=== PATIENT | female | born 1985 | race Hispanic/Latino ===

== ENCOUNTER → 2018-07-09 | Outpatient (CLI) | payer BC ==
[~2018-07-09] VITALS: Ht 7.6 cm; Wt 161.5 kg
--- NOTE | 2018-07-09 15:30 | NUR ---
Bariatric Nutrition Counseling: Visit 04/26: Pt seeking nutritional guidance for bariatric surgery. Pt seeking bariatric surgery to assist with wt loss as she has been overweight all her life and has a history of multiple failed attempts to lose wt. Pt reports wt loss surgery has been suggested by Dr Levy as it will benefit her to reduce pain to her lower back as she has herniated disk. Pt lives with parents and mother usually prepares pt's meals. Most of the grocery shopping done by pt's mother and pt states mother is her support structure for post procedure. RD reviewed with pt her 24 hour recall and together developed nutrition plan to incorporate healthy nutrition throughout the day. 24 hour recall reflects long periods and fasting between meals which RD explained to pt that it does no good to the body. Pt has verbalized understanding. 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 RD has encouraged pt to drink protein shake as a meal replacement the days she does not want to eat her work food. Pt has verbalize agreement. RD has reviewed major food groups with pt and tips on how to balance meals have been provided. During counseling, pt was instructed to creat 1 meal for breakfast, lunch and dinner using all food groups for a well balanced meals. Pt has learned how to make simple, balanced meals. Pt reports physical activity of walking 3x/wk around her neighborhood. RD has encouraged pt to continue with workout regimen however has highly advised pt to increase intensity to incorporate moderate cardio exercise. Pt has verbalized understanding. Pt also reports concerns with soda as she drinks 1-20oz soda on the daily. RD has encouraged pt to start by reducing soda intake to half of her usual intake to every other day in preparation to surgery. Pt states she will begin reducing soda intake to every other day. Pt has set new goals to work on in the upcoming month to review with RD: 1) eat healthier by incorporation vegetables to her diet. 2) change eating habits and routine-stop skipping meals. 3) increase water intake and reduce soda intake. Addendum: 07/10/18 at [address] RD Amended: Links added.
== END | disposition home or self-care (01) ==
LOC: DTH 15:14
PROVIDERS: ATTEND Surgery
DX: E11.9 Type 2 diabetes mellitus without complications (principal); E66.09 Other obesity due to excess calories
CPT/HCPCS: 97802

== ENCOUNTER → 2018-08-07 | Outpatient (CLI) | payer BC ==
--- NOTE | 2018-08-07 16:59 | NUR ---
Bariatric Nutrition Consult: Visit 2: Pt with met goals. Pt reports decreased soda intake to only 2diet cokes in the past month compared to a daily soda. Vegetable intake has increased when pt is at home. Pt unsure how to incorporate more vegetables when she is on the run doing her usual errands after work. Pt reports she has not started physical activity yet and is surprised at home much physical and energetic change she has seen with only making dietary changes. Pt has also removed flour tortilla from her daily intake and has cut back bread to only once a week. RD has reviewed "20 ways to enjoy more fruits and vegetables" with pt giving her multiple examples on how to incorporate vegetables to her daily diet. RD also provided with every day daily tips on how to incorporate vegetables such as grilling fruits and vegetables at family cookouts. Pt has verbalized understanding and will begin making changes. Pt reports she will begin working on sleeping early to continue bettering her quality of life. Pt has set 3 goals to work on in the upcoming month and review with RD at f/u visit. 1) eat more vegetables 2) drink more water 3) sleep earlier. Pt and RD will also review benefits of exercise in upcoming visit to help pt incorporate physical activity. Addendum: 08/07/18 at [address] RD Amended: Links added.
== END | disposition home or self-care (01) ==
LOC: DTH 14:28
PROVIDERS: ATTEND Surgery
DX: E66.9 Obesity, unspecified (principal); E11.9 Type 2 diabetes mellitus without complications
CPT/HCPCS: 97803

== ENCOUNTER → 2018-09-15 | Outpatient (CLI) | payer BC ==
--- NOTE | 2018-09-15 16:45 | NUR ---
Bariatric Nutrition Consult Visit 3: Pt with difficulty meeting certain goals d/t busyness at work. Pt describes stressful time at work causing fatigue and no desire to cook at home for dinner and would simply sleep in the evening after work. Pt does continue to drink water more often and only occasionally drinks coke zero (i.e. 1-2 times per month). 24 Hour Recall reveals only water with meals and no sugar-sweetened beverages. This visit, RD discussed importance of exercise with patient. Patient reports to have started Gym membership and is enthusiastic at opportunity to start exercise classes and explore facility. Patient also expresses desire to walk more. Pt has set 3 goals to work on in the upcoming month and review with RD at f/u visit. 1) Meal planning and prep to encourage healthier snacking and meals 2) Eating more vegetables with meals 3) Working out and walking more. Pt and RD to discuss outcome of incorporating exercises in addition to reviewing goals in f/u visit. Addendum: 09/15/18 at [address] RD Amended: Links added.
== END | disposition home or self-care (01) ==
LOC: DTH 15:33
PROVIDERS: ATTEND Surgery
DX: E11.9 Type 2 diabetes mellitus without complications (principal); E66.09 Other obesity due to excess calories
CPT/HCPCS: 97803

== ENCOUNTER → 2018-10-15 | Outpatient (CLI) | payer BC ==
--- NOTE | 2018-10-15 17:00 | NUR ---
Bariatric nutrition consult: Visit 4: Pt with 2lb wt loss since last month. Pt has met goals of continued exercise however expresses the want to increase frequency as she has struggled to get herself in the gym more often this month due to schedule complications at work. Pt also met goals of increasing vegetable intake. She has been working on vegetable intake since starting the bariatric program. Pt reports she has made a lot of progress as she did not like vegetables before. Pt will continue to work on healthier eating and healthier meal prepping. RD has reviewed Healthy Eating For Healthy Weight with pt. Tips and recommendations made. Pt with multiple questions and examples of healthy eating. All concerns reviewed with pt. Pt has set 3 new goals to work on in the upcoming month and review with RD at F/U visit: 1) stop drinking coke (soda) 2) go to gym x5/wk 3) more vegetables. Addendum: 10/16/18 at [address] RD Amended: Links added.
== END | disposition home or self-care (01) ==
LOC: DTH 16:25
PROVIDERS: ATTEND Nurse Practitioner Family
DX: E11.9 Type 2 diabetes mellitus without complications (principal); E66.9 Obesity, unspecified
CPT/HCPCS: 97803

== ENCOUNTER → 2018-11-11 | Outpatient (CLI) | payer BC ==
[~2018-11-11] MED LIST: AMLO5TAB9 PO; HYDR12.530 PO; LEVO50TA11 PO; LOSA100T58 PO
--- NOTE | 2018-11-11 16:09 | NUR ---
Bariatric Nutrition Consult Visit 5: Pt with 3lb wt loss since last month. Pt has met goal of eliminating coke consumption. Pt has also increased vegetable intake by including grilled vegetables with meals when father cooks out. Pt was able to increase going to the gym, however was inconsistent the last week as various responsibilities arose. RD discussed alternatives for exercise when one does not have time to go to the gym. Pt is also interested in water aerobics and states she is looking into starting with a friend. RD also reviewed "10 Tips to Incorporate more fruits and vegetables" handout with Pt. Pt was engaged and appreciated the handout. Pt has set 3 goals to work on in the upcoming month and review with RD at F/U visit: 1) Increase water intake 2) go to the gym x5/wk 3) Prepare snacks to eat while at work. RD provided contact information for questions and concerns that arise prior to next visit. Addendum: 11/11/18 at [address] RD Amended: Links added.
== END | disposition home or self-care (01) ==
LOC: DTH 14:29
PROVIDERS: ATTEND Surgery
DX: E66.8 Other obesity (principal); E11.9 Type 2 diabetes mellitus without complications
CPT/HCPCS: 97803

== ENCOUNTER 2018-11-13 06:25 | Day surgery (SDC) | payer BC ==
[~2018-11-13] VITALS: Ht 157.5 cm; Wt 153.3 kg
[2018-11-13 07:12] LABS: CREATININE 0.5 mg/dL (0.5-1.5); POTASSIUM 3.8 mmol/L (3.5-5.1)
[2018-11-13 07:13] VITALS: BP 143/78
[2018-11-13 07:15] LABS: BASOPHILS % (AUTO) 0.3 % (0.0-5.0); EOSINOPHILS % (AUTO) 3.2 % (0.0-8.0); HEMATOCRIT 41.9 % (36-48); LYMPHOCYTES % (AUTO) 31.6 % (21.0-51.0); MEAN CORPUSCULAR HEMOGLOBIN 29.5 pg (27.0-33.0); MEAN CORPUSCULAR HGB CONC 33.9 g/dL (32.0-36.0); MEAN CORPUSCULAR VOLUME 87.1 fL (79-99); MONOCYTES % (AUTO) 4.7 % (3.0-13.0); NEUTROPHILS % (AUTO) 60.2 % (40.0-77.0); NUCLEATED RED BLOOD CELLS 0.2 % (0.0-0.19); PLATELET COUNT (AUTO) 204 K/uL (130-400); RED BLOOD CELL COUNT(AUTO) 4.82 MIL/uL (4.00-5.50); RED CELL DISTRIBUTION WIDTH 13.4 % (11.0-15.5); WHITE BLOOD COUNT (AUTO) 6.5 K/uL (4.8-10.8)
[2018-11-13] MEDS ORDERED: HYDR12.530 PO (07:30)
[2018-11-13] MEDS ORDERED: LOSA100T58 PO (07:30)
[2018-11-13] MEDS ORDERED: LEVO50TA11 PO (07:30)
[2018-11-13] MEDS ORDERED: AMLO5TAB9 PO (07:30)
[2018-11-13] MEDS ORDERED: SODIUM CHLORIDE 0.9% 1000ML 1,000 ML IV ONE (07:49)
[2018-11-13] MEDS ORDERED: PROPOFOL 10 MG/ML 20ML VIAL IV ONE (09:19)
[2018-11-13 09:31] VITALS: BP 139/76
[2018-11-13 09:36] VITALS: BP 120/60
[2018-11-13 09:40] VITALS: BP 127/72
[2018-11-13 09:45] VITALS: BP 123/72
== END 2018-11-13 09:55 | disposition home or self-care (01) ==
LOC: DAH 06:25 → ENDO 06:25
PROVIDERS: ATTEND Surgery
DX: K44.9 Diaphragmatic hernia without obstruction or gangrene (principal); E66.01 Morbid (severe) obesity due to excess calories; K21.9 Gastro-esophageal reflux disease without esophagitis; I10 Essential (primary) hypertension; Z68.44 Body mass index [BMI] 60.0-69.9, adult; Z79.899 Other long term (current) drug therapy; Z83.3 Family history of diabetes mellitus; Z82.49 Family history of ischemic heart disease and other diseases of the circulatory system
CPT/HCPCS: 36415; 43235; 80048; 84703; 85025; A4606; J2704; J7030

== ENCOUNTER → 2019-01-29 | Outpatient (CLI) | payer BC ==
--- NOTE | 2019-01-29 15:17 | NUR ---
BARIATRIC PRE-OP DIET COUNSELING Pt visit for Pre-Op Diet education. RD reviewed Bariatric meal planning and Pre- and Post-Op Bariatric phases with Pt. Pt to Initiate Clear Liquid diet one week prior to procedure. Pt with multiple questions. RD answered all of Pt questions. RD provided contact information for Pt to contact RD as nutrition concerns arise. RD to follow up with Pt post procedure.
== END | disposition home or self-care (01) ==
LOC: DTH 13:23
PROVIDERS: ATTEND Surgery
DX: E66.9 Obesity, unspecified (principal); E11.9 Type 2 diabetes mellitus without complications
CPT/HCPCS: 97803

== ENCOUNTER 2019-02-03 15:00 | Inpatient (IN) | payer OTHER, SELFPAY ==
[~2019-02-03] VITALS: Ht 162.6 cm; Wt 156.7 kg
[2019-02-03 15:01] VITALS: BP 155/74
[2019-02-03 15:08] LABS: BASOPHILS % (AUTO) 0.2 % (0.0-5.0); EOSINOPHILS % (AUTO) 1.7 % (0.0-8.0); MEAN CORPUSCULAR HEMOGLOBIN 29.9 pg (27.0-33.0); MEAN CORPUSCULAR HGB CONC 34.5 g/dL (32.0-36.0); MEAN CORPUSCULAR VOLUME 86.5 fL (79-99); MONOCYTES % (AUTO) 4.5 % (3.0-13.0); NEUTROPHILS % (AUTO) 64.6 % (40.0-77.0); PLATELET COUNT (AUTO) 213 K/uL (130-400); RED BLOOD CELL COUNT(AUTO) 4.51 MIL/uL (4.00-5.50); RED CELL DISTRIBUTION WIDTH 13.3 % (11.0-15.5); WHITE BLOOD COUNT (AUTO) 6.6 K/uL (4.8-10.8)
[2019-02-03 15:27] LABS: CREATININE 0.5 mg/dL (0.5-1.5); POTASSIUM 3.3 mmol/L (3.5-5.1)
--- NOTE | 2019-02-05 11:13 | NUR ---
LOW POTASSIUM LEVEL REPORTED TO GERHARD DYSON MA. ORDERS TO REPEAT POTASSIUM DOS.
[2019-02-08] VITALS (25 sets, daily range): BP systolic 133–197; BP diastolic 64–113
[2019-02-08] MEDS ORDERED: BUPIVACAINE/PF 0.5% 30ML VIAL ONE (08:33)
[2019-02-08] MEDS ORDERED: LACTATED RINGERS 1000ML 1,000 ML IV ONE (08:34)
[2019-02-08] MEDS ORDERED: ONDANSETRON HCL 4 MG/2 ML VIAL ONE ×2 (08:48→10:50)
[2019-02-08] MEDS ORDERED: LIDOCAINE PF 2% 5ML ABBOJECT ONE ×2 (08:48→08:51)
[2019-02-08] MEDS ORDERED: PROPOFOL 10 MG/ML 20ML VIAL IV ONE (08:48)
[2019-02-08] MEDS ORDERED: DEXAMETHASONE SOD PHOSPHATE 10MG/ML 1ML VIAL ONE (08:48)
[2019-02-08] MEDS ORDERED: GLYCOPYRROLATE 1 MG/5 ML SYRINGE ONE (08:48)
[2019-02-08] MEDS ORDERED: NEOSTIGMINE 5MG/5ML SYR IV ONE (08:48)
[2019-02-08] MEDS ORDERED: SUCCINYLCHOLINE 200MG/10ML SYR ONE (08:48)
[2019-02-08] MEDS ORDERED: MIDAZOLAM HCL 1 MG/ML 2ML VIAL ONE (08:49)
[2019-02-08] MEDS ORDERED: FENTANYL CITRATE PF 50 MCG/1 ML 2ML VIAL ONE ×2 (08:49→10:15)
[2019-02-08] MEDS ORDERED: ROCURONIUM 10MG/1ML SYR 10 MG/ML ML ONE (08:49)
[2019-02-08] MEDS: CEFAZOLIN SODIUM 1 GM VIAL ONE ×2 (09:07→09:20)
[2019-02-08] MEDS ORDERED: MEPERIDINE-PF 25 MG/ML SYG ONE ×3 (10:22→10:55)
[2019-02-08] MEDS ORDERED: ACETAMINOPHEN-CODEINE ELIXIR 5 ML UDCUP PO PRN (10:30)
[2019-02-08] MEDS: CEFAZOLIN SODIUM 1 GM VIAL IVP SCH ×2 (10:30→19:01)
[2019-02-08] MEDS ORDERED: ONDANSETRON HCL 4 MG/2 ML VIAL IVP PRN (10:30)
[2019-02-08] MEDS ORDERED: HYDRALAZINE HCL 20 MG/ML VIAL ONE (11:05)
[2019-02-08] MEDS: LACTATED RINGERS 1000ML 1,000 ML IV SCH ×3 (11:58→21:26)
[2019-02-08] MEDS: MORPHINE SULFATE 5 MG/ML VIAL IVP PRN ×3 (11:58→22:44)
[2019-02-08] MEDS: KETOROLAC TROMETHAMINE 30MG/ML IV SCH ×2 (16:05→21:27)
[2019-02-08] MEDS: FAMOTIDINE/PF 20 MG/2 ML VIAL IV SCH (21:28)
[2019-02-08] MEDS: ENOXAPARIN SODIUM 30 MG/0.3 ML SQ SCH (21:28)
[2019-02-09] MEDS: CEFAZOLIN SODIUM 1 GM VIAL IVP SCH ×3 (02:45→18:30)
[2019-02-09 03:02] VITALS: BP 129/68
[2019-02-09] MEDS: KETOROLAC TROMETHAMINE 30MG/ML IV SCH ×3 (03:20→15:15)
--- NOTE | 2019-02-09 03:20 | NUR ---
RECEIVED REPORT RECEIVED FROM AMAURY SU. TOOK OVER CARE AT THIS TIME. PT IS RESTING WELL. NO DISTRESS NOTED. KEPT COMFORTABLE.
[2019-02-09] MEDS: LACTATED RINGERS 1000ML 1,000 ML IV SCH ×3 (05:18→16:41)
[2019-02-09 05:34] LABS: BASOPHILS % (AUTO) 0.4 % (0.0-5.0); EOSINOPHILS % (AUTO) 0.7 % (0.0-8.0); HEMATOCRIT 37.1 % (36-48); LYMPHOCYTES % (AUTO) 26.1 % (21.0-51.0); MEAN CORPUSCULAR HEMOGLOBIN 30.3 pg (27.0-33.0); MEAN CORPUSCULAR HGB CONC 34.7 g/dL (32.0-36.0); MEAN CORPUSCULAR VOLUME 87.1 fL (79-99); MONOCYTES % (AUTO) 6.2 % (3.0-13.0); NEUTROPHILS % (AUTO) 66.6 % (40.0-77.0); PLATELET COUNT (AUTO) 199 K/uL (130-400); RED BLOOD CELL COUNT(AUTO) 4.26 MIL/uL (4.00-5.50); RED CELL DISTRIBUTION WIDTH 13.5 % (11.0-15.5); WHITE BLOOD COUNT (AUTO) 7.7 K/uL (4.8-10.8)
[2019-02-09 05:47] LABS: CREATININE 0.6 mg/dL (0.5-1.5); POTASSIUM 3.1 mmol/L (3.5-5.1)
--- NOTE | 2019-02-09 06:12 | NUR ---
ROUNDS PT RESTING WELL, NO CONCERNS VERBALIZED. NO DISTRESS NOTED. KEPT RESTED IN BED. FOR MORE CARE.
--- NOTE | 2019-02-09 07:45 | NUR ---
NOTE AAOX3. C/O HEADACHE. DENIES N/V TOLERATES PHASE I DIET. SHE IS S/P LAPAROSCOPIC GASTRIC SLEEVE. BOWEL SOUNDS HYPOACTIE. NOT PASSING GAS YET BUT HAS BEEN GETTING UP TO BATHROOM. WILL RECEIVE HER AM MEDS AND ABX AND WILL WALK IN THE HALLS ONCE HER HEADACHE DOING BETTER. WILL MEDICATE PRN PAIN. FAMILY AT HER SIDE.
[2019-02-09 08:00] VITALS: BP 144/78
[2019-02-09] MEDS: FAMOTIDINE/PF 20 MG/2 ML VIAL IV SCH (09:39)
[2019-02-09] MEDS: ENOXAPARIN SODIUM 30 MG/0.3 ML SQ SCH (09:39)
--- NOTE | 2019-02-09 10:40 | NUR ---
NOTE VON RATLIFF CAME IN TO ASSESS PATIENT. EXPLAINED TO HER THE IMPORTANCE OF ADHERING TO DIET PLANNED AND AMBULATING. ASKED IF SHE HAS PASSED GAS AND SHE HAS NOT HAD BM THIS AM. THERE WILL BE A STANDING ORDER TO DC IF SHE PASSES GAS AND PAIN IS MORE UNDER CONTROL.
[2019-02-09 11:30] VITALS: BP 143/77
--- NOTE | 2019-02-09 12:51 | NUR ---
NOTE HAS BEEN WALKING IN THE [place] WITH FAMILY. REPORTS HEADACHE IS BETTER. REMINDED HER ABOUT FOLLOWING HER DIET TOLD. VERBALIZED UNDERSTANDING.
[2019-02-09] MEDS ORDERED: POTASSIUM CHLORIDE 20MEQ/100ML 100 ML IV PRN (14:15)
[2019-02-09] MEDS ORDERED: LIDOCAINE HCL-MPF 1% 2ML VIAL IV PRN (14:15)
[2019-02-09] MEDS ORDERED: POTASSIUM CHLORIDE 10% ELIXIR 20 MEQ/15 ML UDCUP PO PRN (14:15)
[2019-02-09] MEDS ORDERED: POTASSIUM CHLORIDE 20 MEQ ERTAB PO PRN (14:15)
[2019-02-09 16:00] VITALS: BP 145/83
--- NOTE | 2019-02-09 16:29 | NUR ---
RD UPDATE Pt POD 2, Post Bariatric Procedure. RD reviewed Post Bariatric procedure diet education with Pt. Pt reports headaches and dislikes recommended protein shakes. Pt also dislikes chk'n broth, RD provided recommendations and alternatives. Pt with multiple questions. RD answered all of Pt questions. RD provided contact information for Pt to contact after discharge as questions or concerns arise. Please notify RD as additional nutrition concerns arise. Thank you.
--- NOTE | 2019-02-09 17:00 | NUR ---
CM NOTE CHART REVIEWED, INPATIENT SHORT STAY PLANNED PROCEDURE- PT UP AND WALKING IN THE HALLWAYS, NO TRIGGER TO CM DETAILED CM ASSESSMENT DEFERRED Addendum: 02/10/19 at 0823 by CONSTANZA MARQUEZ RN CM Amended: Links added.
[2019-02-09] MEDS ORDERED: SIMETHICONE 80 MG TAB.CHEW ONE (18:30)
== END 2019-02-09 19:46 | disposition home or self-care (01) | DRG 621 ==
LOC: EDSTATUS 15:00 → DAHIP 02-08 07:55 → 4BH 02-08 11:47
PROVIDERS: ADMIT Surgery; ATTEND Surgery
PROC: 0DB64Z3 Excision of Stomach, Percutaneous Endoscopic Approach, Vertical (ICD-10-PCS; principal; 2019-02-08 09:05)
DX: E66.01 Morbid (severe) obesity due to excess calories (principal); K21.9 Gastro-esophageal reflux disease without esophagitis; I10 Essential (primary) hypertension; Z68.43 Body mass index [BMI] 50.0-59.9, adult; Z83.3 Family history of diabetes mellitus; Z82.49 Family history of ischemic heart disease and other diseases of the circulatory system
CPT/HCPCS: 36415; 80048; 84132; 84703; 85025; 86850; 86900; 86901; 94760; A4606; G0378; J0330; J0360; J0690; J1100; J1650; J1885; J2001; J2175; J2250; J2270; J2405; J2704; J2710; J3010; J3490; J7030; J7120

== ENCOUNTER → 2021-12-03 | Outpatient (CLI) | payer BC, MEDICAID ==
[~2021-12-03] MED LIST changes: +AMLO-257 PO; -AMLO5TAB9 PO; +METF500S9 PO; +PREN1TAB26 PO
== END | disposition home or self-care (01) ==
LOC: SHCH 10:35
PROVIDERS: ATTEND Internal Medicine Cardiovascular Disease
DX: I35.0 Nonrheumatic aortic (valve) stenosis (principal); I51.7 Cardiomegaly
CPT/HCPCS: 93306

== ENCOUNTER 2022-06-10 10:34 | Emergency (ER) | payer BC, MEDICAID ==
[~2022-06-10 10:34] MED LIST changes: -AMLO-257 PO; -HYDR12.530 PO; -LEVO50TA11 PO; -LOSA100T58 PO; -METF500S9 PO
[2022-06-10 10:56] VITALS: BP 149/97
[2022-06-10 11:27] LABS: BASOPHILS % (AUTO) 0.4 % (0.0-5.0); EOSINOPHILS % (AUTO) 2.5 % (0.0-8.0); HEMATOCRIT 42.1 % (36-48); LYMPHOCYTES % (AUTO) 40.6 % (21.0-51.0); MEAN CORPUSCULAR HEMOGLOBIN 29.2 pg (27.0-33.0); MEAN CORPUSCULAR HGB CONC 33.3 g/dL (32.0-36.0); MEAN CORPUSCULAR VOLUME 87.7 fL (79-99); MONOCYTES % (AUTO) 5.5 % (3.0-13.0); NEUTROPHILS % (AUTO) 50.6 % (40.0-77.0); PLATELET COUNT (AUTO) 177 K/uL (130-400); RED CELL DISTRIBUTION WIDTH 12.6 % (11.0-15.5); WHITE BLOOD COUNT (AUTO) 5.7 K/uL (4.8-10.8)
[2022-06-10 11:40] LABS: CREATININE 0.6 mg/dL (0.5-1.5); POTASSIUM 3.6 mmol/L (3.5-5.1)
[2022-06-10 11:40] LABS: APPEARANCE,URINE CLEAR (CLEAR); BILIRUBIN,URINE NEGATIVE (NEGATIVE); COLOR,URINE LIGHT-YELLOW (YELLOW); GLUCOSE, URINE (UA) NEGATIVE (NEGATIVE); KETONES,URINE NEGATIVE (NEGATIVE); LEUKOCYTE ESTERASE ,URINE NEGATIVE Leu/uL (NEGATIVE); NITRATE,URINE NEGATIVE (NEGATIVE); OCCULT BLOOD,URINE NEGATIVE (NEGATIVE); PROTEIN,URINE NEGATIVE (NEGATIVE); UROBILINOGEN,URINE 0.2 mg/dL (0.2-1.0)
[2022-06-10 11:42] LABS: AMYLASE 56 U/L (25-115); LIPASE 162 U/L (114-286)
[2022-06-10 11:51] LABS: TOTAL PROTEIN, SERUM 7.5 g/dL (6.0-8.3)
[2022-06-10] MEDS ORDERED: 0.9%NACL 1000ML 1,000 ML IV ONE (12:00)
[2022-06-10] MEDS ORDERED: MORPHINE 4 MG SYG IVP ONE (12:00)
[2022-06-10] MEDS ORDERED: KETOROLAC 15MG/ML VIAL (15MG/ML) IV ONE (12:00)
[2022-06-10] MEDS ORDERED: ONDANSETRON 4MG INJ IVP ONE (12:00)
[2022-06-10 12:07] LABS: HCG,QUALITATIVE URINE NEGATIVE (NEGATIVE)
[2022-06-10] MEDS ORDERED: IOHEXOL 350 MG/ML 100ML INFUS..BTL IV ONE (12:27)
[2022-06-10] MEDS ORDERED: ONDA4TAB10 PO (13:42)
[2022-06-10] MEDS ORDERED: NAPR500T6 PO (13:42)
== END 2022-06-10 14:15 | disposition home or self-care (01) ==
LOC: EDH 10:34
DX: K80.20 Calculus of gallbladder without cholecystitis without obstruction (principal); R07.89 Other chest pain; Z98.890 Other specified postprocedural states; Z79.899 Other long term (current) drug therapy
CPT/HCPCS: 99284; 74177; 96374; 96375; 96361; 82150; 84484; 80053; 83690 ×2; 85025; 81003; 81025; 36415; 93005; J7030; J2405; J2270; J1885; Q9967

== ENCOUNTER 2023-09-22 07:16 | Day surgery (SDC) | payer BC ==
[2023-09-17 13:36] VITALS: BP 140/77; PULSE 61; RESP 18
[2023-09-17 13:37] LABS: BASOPHILS # (AUTO) 0.02 K/uL (0.00-0.20); BASOPHILS % (AUTO) 0.4 % (0.0-5.0); EOSINOPHILS # (AUTO) 0.19 K/uL (0.00-0.70); EOSINOPHILS % (AUTO) 3.4 % (0.0-8.0); HEMATOCRIT 41.2 % (36-48); IMMATURE GRANULOCYTE ABSOLUTE 0.01 K/uL (0-1); LYMPHOCYTES % (AUTO) 35.5 % (21.0-51.0); MEAN CORPUSCULAR HEMOGLOBIN 30.4 pg (27.0-33.0); MEAN CORPUSCULAR VOLUME 89.4 fL (79-99); MONOCYTES # (AUTO) 0.3 K/uL (0.1-1.0); MONOCYTES % (AUTO) 4.8 % (3.0-13.0); NEUTROPHILS # (AUTO) 3.1 K/uL (1.8-7.7); NEUTROPHILS % (AUTO) 55.7 % (40.0-77.0); PLATELET COUNT (AUTO) 213 K/uL (130-400); RED BLOOD CELL COUNT(AUTO) 4.61 MIL/uL (4.00-5.50); RED CELL DISTRIBUTION WIDTH 12.4 % (11.0-15.5); WHITE BLOOD COUNT (AUTO) 5.6 K/uL (4.8-10.8)
[2023-09-17 13:48] LABS: CREATININE 0.5 mg/dL (0.5-1.0); POTASSIUM 3.9 mmol/L (3.5-5.1)
[2023-09-17 14:00] LABS: INR <= 0.93 (0.85-1.15); PROTHROMBIN TIME 10.3 SEC (9.6-11.6)
[2023-09-17 14:02] LABS: PARTIAL THROMBOPLASTIN TIME 26.3 SEC (26.3-35.5)
[2023-09-22] VITALS (16 sets, daily range): BP systolic 127–146; BP diastolic 72–83; PULSE 54–66; RESP 14–18
[~2023-09-22] VITALS: Ht 160 cm; Wt 112.9 kg
[~2023-09-22 07:16] MED LIST changes: +GABA-529 PO; +LOSA100T59 PO; -PREN1TAB26 PO
[2023-09-22] MEDS ORDERED: PROPOFOL 10 MG/ML 20ML VIAL IV ONE (07:52)
[2023-09-22] MEDS ORDERED: MIDAZOLAM HCL 1 MG/ML 2ML VIAL ONE (07:52)
[2023-09-22] MEDS ORDERED: ONDANSETRON 4MG INJ ONE (07:52)
[2023-09-22] MEDS ORDERED: DEXAMETHASONE SOD PHOSPHATE 10MG/ML 1ML VIAL ONE (07:52)
[2023-09-22] MEDS ORDERED: LIDOCAINE PF 100MG/5ML (2%) SYRINGE 5ML ONE (07:52)
[2023-09-22] MEDS ORDERED: ROCURONIUM BROMIDE 10MG/1ML 5ML VL ONE (07:52)
[2023-09-22] MEDS ORDERED: FENTANYL CITRATE PF 50 MCG/1 ML 2ML VIAL ONE ×2 (07:53→09:24)
[2023-09-22] MEDS ORDERED: NEOSTIGMINE METHYLSULFATE 1MG/ML IV ONE (07:59)
[2023-09-22] MEDS ORDERED: PHENYLEPHRINE HCL 10 MG/ML 1ML VIAL IV ONE (07:59)
[2023-09-22] MEDS ORDERED: GLYCOPYRROLATE 0.2 MG/ML 5 ML VIAL ONE (07:59)
[2023-09-22] MEDS: LACTATED RINGERS 1000ML 1,000 ML IV ONE (08:15)
[2023-09-22] MEDS: CEFAZOLIN SODIUM 2 GM VIAL ONE (08:15)
[2023-09-22] MEDS: CEFAZOLIN SODIUM 1 GM VIAL ONE (08:16)
[2023-09-22] MEDS ORDERED: ROPIVACAINE 0.5% 5MG/ML 30ML ONE (08:41)
[2023-09-22] MEDS: BUPIVACAINE/PF 0.5% 30ML VIAL ONE (08:42)
[2023-09-22] MEDS: CEFAZOLIN SODIUM 3 GM VIAL IVPB ONE (08:51)
[2023-09-22] MEDS ORDERED: KETOROLAC 30MG VIAL (30MG/ML) ONE (09:23)
[2023-09-22] MEDS: ONDANSETRON 4MG INJ ONE (10:21)
[2023-09-22] MEDS: MEPERIDINE-PF 25 MG/ML SYG ONE (10:22)
== END 2023-09-22 11:40 | disposition home or self-care (01) ==
LOC: DAH 07:16
PROVIDERS: ATTEND Surgery
DX: K42.9 Umbilical hernia without obstruction or gangrene (principal); I10 Essential (primary) hypertension; E07.9 Disorder of thyroid, unspecified; Z79.899 Other long term (current) drug therapy; Z79.01 Long term (current) use of anticoagulants; Z83.3 Family history of diabetes mellitus; Z82.49 Family history of ischemic heart disease and other diseases of the circulatory system; Z98.84 Bariatric surgery status; Z90.49 Acquired absence of other specified parts of digestive tract; Z98.891 History of uterine scar from previous surgery; Z98.890 Other specified postprocedural states
CPT/HCPCS: 93005; 80048; 84703 ×2; 85025; 85610; 85730; 36415 ×2; 49591; 64488; A6260; J0665; A4663; A4452; J0690 ×3; J7120; J3010 ×2; J1100; J3490 ×2; J2001; J2250; J2704; J2405 ×2; J1885; J2710; J2175; J2795; J2371; A4930 ×2; A4215; A4223; A4222; A4221; A4600